=== PATIENT | female | born 1950 | race Caucasian/White ===

== ENCOUNTER → 2023-05-27 15:00 | Outpatient (REF) | payer MEDICARE, SELFPAY | LOC: HWRAD 15:00 | PROVIDERS: ATTENDING PHYSICIAN Family Medicine | DX: J32.9 Chronic sinusitis, unspecified (principal) | CPT/HCPCS: 70486 ==

== ENCOUNTER → 2023-10-16 14:30 | Outpatient (REF) | payer MEDICARE, SELFPAY | LOC: RCS 14:30 | PROVIDERS: ATTENDING PHYSICIAN Internal Medicine Cardiovascular Disease; FAMILY PHYSICIAN Family Medicine | DX: D15.1 Benign neoplasm of heart (principal); Z98.890 Other specified postprocedural states; I49.1 Atrial premature depolarization | CPT/HCPCS: 93306 ==

== ENCOUNTER → 2023-12-17 11:27 | Outpatient (REF) | payer MEDICARE, SELFPAY | LOC: RAD 11:27 | PROVIDERS: ATTENDING PHYSICIAN Family Medicine | DX: Z13.6 Encounter for screening for cardiovascular disorders (principal) | CPT/HCPCS: 75571 ==

== ENCOUNTER → 2024-01-12 11:59 | Outpatient (REF) | payer MEDICARE, SELFPAY | LOC: WDC 11:59 | PROVIDERS: ATTENDING PHYSICIAN Obstetrics & Gynecology; FAMILY PHYSICIAN Family Medicine | DX: Z12.31 Encounter for screening mammogram for malignant neoplasm of breast (principal) | CPT/HCPCS: 77063; 77067 ==

== ENCOUNTER → 2024-03-14 13:39 | Outpatient (REF) | payer MEDICARE, SELFPAY | LOC: WDC 13:39 | PROVIDERS: ATTENDING PHYSICIAN Obstetrics & Gynecology; FAMILY PHYSICIAN Family Medicine | DX: R92.2 Inconclusive mammogram (principal) | CPT/HCPCS: 76641 ==

== ENCOUNTER → 2024-04-22 14:43 | Outpatient (REF) | payer MEDICARE, SELFPAY | LOC: RAD 14:43 | PROVIDERS: ATTENDING PHYSICIAN Family Medicine | DX: S60.453A Superficial foreign body of left middle finger, initial encounter (principal) | CPT/HCPCS: 73140 ==

== ENCOUNTER → 2024-07-22 09:14 | Outpatient (REF) | payer MEDICARE, SELFPAY | LOC: RAD 09:14 | PROVIDERS: ATTENDING PHYSICIAN Obstetrics & Gynecology; FAMILY PHYSICIAN Family Medicine | DX: Z78.0 Asymptomatic menopausal state (principal) | CPT/HCPCS: 77080 ==

== ENCOUNTER 2024-09-21 06:13 | Day surgery (SDC) | payer MEDICARE, SELFPAY | END 2024-09-21 14:45 | disposition home or self-care (01) | LOC: GI 06:13 | PROVIDERS: ATTENDING PHYSICIAN Internal Medicine | DX: K52.9 Noninfective gastroenteritis and colitis, unspecified (principal); R10.13 Epigastric pain; K31.7 Polyp of stomach and duodenum; K52.82 Eosinophilic colitis | CPT/HCPCS: 45380; 43239; 88305; 88313; 88342 ==

== ENCOUNTER → 2025-01-12 13:39 | Outpatient (REF) | payer MEDICARE, SELFPAY | LOC: WDC 13:39 | PROVIDERS: ATTENDING PHYSICIAN Obstetrics & Gynecology; FAMILY PHYSICIAN Family Medicine | DX: Z12.31 Encounter for screening mammogram for malignant neoplasm of breast (principal) | CPT/HCPCS: 77063; 77067 ==

== ENCOUNTER → 2025-02-14 10:39 | Outpatient (REF) | payer MEDICARE, SELFPAY | LOC: WDC 10:39 | PROVIDERS: ATTENDING PHYSICIAN Obstetrics & Gynecology; FAMILY PHYSICIAN Family Medicine | DX: R92.2 Inconclusive mammogram (principal) | CPT/HCPCS: 76641 ==